=== PATIENT | female | born 1935 | race Caucasian/White ===

== ENCOUNTER 2021-10-26 17:10 | Inpatient (IN) ==
[2021-10-26] MEDS ORDERED: DILTIAZEM 50 MG/10 ML VIAL IV STA (17:44)
[2021-10-26 18:15] LABS: Basophils % 0.8 % (0.0-0.8); Eosinophils # 0.1 10*3/uL (0.0-0.87); Hematocrit 41.2 VOL% (35.7-47.0); Hemoglobin 13.5 GM/DL (12.0-16.0); Immature Granulocytes % 0.2 %; Immature Granulocytes Absolute 0.01 #; Lymphocytes # 1.3 10*3/uL (1.4-4.0); Lymphocytes % 24.8 % (21.3-54.2); Mean Corpuscular HGB Conc 32.8 GM/DL (32-36); Mean Corpuscular Volume 93.2 FL (87-102); Mean Platelet Volume 11.6 FL (9.6-12.0); Monocytes # 0.7 10*3/uL (0.11-0.8); Monocytes % 13.9 % (1.7-12.7); Neutrophils % 58.3 % (38.7-73.9); Platelet Count 103 T/CUMM (130-400); Red Blood Count 4.42 MC/CUMM (3.8-5.5); Red Cell Distribution Width 14.1 % (9.3-17.3); White Blood Count 5.1 T/CUMM (4-12)
[2021-10-26 19:13] LABS: Albumin 3.3 G/DL (3.4-5.0); Bilirubin,Total 1.2 MG/DL (0.20-1.00); Calcium 8.6 MG/DL (8.5-10.1); Potassium 3.2 MMOL/L (3.5-5.1); Total Protein 6.2 G/DL (6.4-8.2)
[2021-10-26] MEDS ORDERED: ENOXAPARIN 60 MG/0.6 ML SYRINGE SUBCUT STA (19:40)
[2021-10-26] MEDS ORDERED: DILTIAZEM INJ 100 MG in SODIUM CHLORIDE 0.9% 100 ML IV SCH (20:00)
[2021-10-26] MEDS ORDERED: GLUCAGON 1 MG VIAL IM PRN (20:46)
[2021-10-26] MEDS ORDERED: ONDANSETRON 4 MG/2 ML VIAL IV PRN (20:46)
[2021-10-26] MEDS ORDERED: ACETAMINOPHEN 325 MG TABLET PO PRN (20:46)
[2021-10-26] MEDS ORDERED: DEXTROSE 10% 250 ML BAG IV PRN (20:46)
[2021-10-26] MEDS ORDERED: POTASSIUM CHLORIDE 20 MEQ TABLET PO PRN (20:50)
[2021-10-26] MEDS ORDERED: METOPROLOL TARTRATE 25 MG TABLET PO SCH (21:00)
[2021-10-27 00:53] LABS: Basophils % 0.8 % (0.0-0.8); Eosinophils # 0.1 10*3/uL (0.0-0.87); Eosinophils % 2.3 % (0.00-10.9); Hematocrit 39.5 VOL% (35.7-47.0); Hemoglobin 12.7 GM/DL (12.0-16.0); Immature Granulocytes % 0.4 %; Immature Granulocytes Absolute 0.02 #; Lymphocytes # 1.4 10*3/uL (1.4-4.0); Mean Corpuscular HGB Conc 32.2 GM/DL (32-36); Mean Corpuscular Volume 94.5 FL (87-102); Mean Platelet Volume 11.2 FL (9.6-12.0); Monocytes # 0.6 10*3/uL (0.11-0.8); Monocytes % 12.5 % (1.7-12.7); Platelet Count 104 T/CUMM (130-400); Red Blood Count 4.18 MC/CUMM (3.8-5.5); Red Cell Distribution Width 14.1 % (9.3-17.3); White Blood Count 5.1 T/CUMM (4-12)
[2021-10-27 00:58] LABS: Calcium 8.5 MG/DL (8.5-10.1); Osmolality,Calculated 286.8 MOS/KG (273-304); Risk Ratio 3.21; VLDL Cholesterol 11.4 MG/DL
[2021-10-27] MEDS: ALBUTEROL/IPRATROPIUM 3 ML NEB RESP TX SCH ×4 (02:06→18:55)
[2021-10-27] MEDS ORDERED: POTASSIUM CHLORIDE 20 MEQ TABLET PO ONE (08:26)
[2021-10-27] MEDS ORDERED: APIXABAN 5 MG TABLET PO SCH (09:00)
[2021-10-27] MEDS: FUROSEMIDE 40 MG/4 ML VIAL IV SCH ×2 (10:13→16:29)
[2021-10-27] MEDS: PANTOPRAZOLE 40 MG TABLET PO SCH (10:14)
[2021-10-27] MEDS: METOPROLOL TARTRATE 25 MG TABLET PO SCH ×2 (10:14→21:55)
[2021-10-27] MEDS: APIXABAN 2.5 MG TABLET PO SCH (21:55)
[2021-10-28 05:21] LABS: Albumin 3.3 G/DL (3.4-5.0); Bilirubin,Total 1.1 MG/DL (0.20-1.00); Calcium 8.8 MG/DL (8.5-10.1); Osmolality,Calculated 285.8 MOS/KG (273-304); Potassium 2.7 MMOL/L (3.5-5.1); Total Protein 6.4 G/DL (6.4-8.2)
[2021-10-28] MEDS: ALBUTEROL/IPRATROPIUM 3 ML NEB RESP TX SCH ×3 (07:28→19:30)
[2021-10-28] MEDS ORDERED: POTASSIUM CHLORIDE 20 MEQ TABLET PO ONE (07:59)
[2021-10-28] MEDS: diphenhydrAMINE 25 MG/10 ML UDCUP PO SCH ×2 (08:38→21:40)
[2021-10-28] MEDS: FUROSEMIDE 40 MG/4 ML VIAL IV SCH (09:18)
[2021-10-28] MEDS: APIXABAN 2.5 MG TABLET PO SCH (09:20)
[2021-10-28] MEDS: PANTOPRAZOLE 40 MG TABLET PO SCH (09:20)
[2021-10-28] MEDS: METOPROLOL TARTRATE 25 MG TABLET PO SCH (09:20)
[2021-10-28] MEDS ORDERED: METOPROLOL TARTRATE 25 MG TABLET PO ONE (10:44)
[2021-10-28] MEDS: RIVAROXABAN 15 MG TABLET PO SCH (21:25)
[2021-10-28] MEDS: METOPROLOL TARTRATE 50 MG TABLET PO SCH (21:25)
[2021-10-29] MEDS: ALBUTEROL/IPRATROPIUM 3 ML NEB RESP TX SCH ×5 (00:30→18:58)
[2021-10-29] MEDS ORDERED: POTASSIUM CHLORIDE 20 MEQ TABLET PO PRN (08:23)
[2021-10-29 08:50] LABS: Albumin 3.2 G/DL (3.4-5.0); Bilirubin,Total 1.2 MG/DL (0.20-1.00); Calcium 9.2 MG/DL (8.5-10.1); Potassium 3.7 MMOL/L (3.5-5.1); Total Protein 6.7 G/DL (6.4-8.2)
[2021-10-29] MEDS ORDERED: MAGNESIUM SULF RIDER 2 GM/50 ML PREMIX IV ONE (09:55)
[2021-10-29] MEDS ORDERED: DILTIAZEM CD 120 MG CAPSULE PO SCH (10:00)
[2021-10-29] MEDS: POTASSIUM BICARB EFFERVESCENT 20 MEQ TAB.EFF PO PRN ×4 (10:40→17:02)
[2021-10-29] MEDS: PANTOPRAZOLE 40 MG TABLET PO SCH (10:40)
[2021-10-29] MEDS: METOPROLOL TARTRATE 50 MG TABLET PO SCH (10:41)
[2021-10-29] MEDS ORDERED: MAGNESIUM OXIDE 400 MG TABLET PO ONE (11:18)
[2021-10-29] MEDS ORDERED: DILTIAZEM CD 120 MG CAPSULE PO ONE (15:38)
[2021-10-29] MEDS: RIVAROXABAN 15 MG TABLET PO SCH (17:02)
[2021-10-29] MEDS: diphenhydrAMINE 25 MG/10 ML UDCUP PO SCH (21:10)
[2021-10-29] MEDS: METOPROLOL TARTRATE 25 MG TABLET PO SCH (21:10)
[2021-10-30] MEDS: ALBUTEROL/IPRATROPIUM 3 ML NEB RESP TX SCH ×2 (00:02→07:10)
[2021-10-30 05:24] LABS: Basophils # 0.1 10*3/uL (0.0-0.2); Basophils % 0.8 % (0.0-0.8); Eosinophils # 0.2 10*3/uL (0.0-0.87); Eosinophils % 3.5 % (0.00-10.9); Hematocrit 43.5 VOL% (35.7-47.0); Hemoglobin 13.8 GM/DL (12.0-16.0); Immature Granulocytes % 0.2 %; Immature Granulocytes Absolute 0.01 #; Lymphocytes # 1.7 10*3/uL (1.4-4.0); Lymphocytes % 27.5 % (21.3-54.2); Mean Corpuscular HGB Conc 31.7 GM/DL (32-36); Mean Corpuscular Volume 95.4 FL (87-102); Monocytes # 0.7 10*3/uL (0.11-0.8); Monocytes % 10.8 % (1.7-12.7); Neutrophils % 57.2 % (38.7-73.9); Platelet Count 103 T/CUMM (130-400); Red Blood Count 4.56 MC/CUMM (3.8-5.5); Red Cell Distribution Width 13.9 % (9.3-17.3); White Blood Count 6.3 T/CUMM (4-12)
[2021-10-30 05:41] LABS: Calcium 8.9 MG/DL (8.5-10.1); Osmolality,Calculated 281.4 MOS/KG (273-304); Potassium 4.3 MMOL/L (3.5-5.1)
[2021-10-30] MEDS: METOPROLOL TARTRATE 25 MG TABLET PO SCH (08:55)
[2021-10-30] MEDS: PANTOPRAZOLE 40 MG TABLET PO SCH (08:55)
[2021-10-30] MEDS ORDERED: DILTIAZEM CD 240 MG CAPSULE PO SCH (09:00)
[2021-10-30 10:04] VITALS: BP 141/113
== END 2021-10-30 11:38 | disposition home health service (06) | DRG 291 ==
LOC: N.ED 17:10 → SUATTDRO 20:46 → N.EDINP 20:46 → N.TELEN 21:44
PROVIDERS: ADMIT Emergency Medicine; ATTEND Internal Medicine

== ENCOUNTER 2022-01-22 17:34 | Observation (INO) ==
[2022-01-22] MEDS ORDERED: DILTIAZEM 25 MG/5 ML VIAL IV STA (20:47)
[2022-01-22] MEDS ORDERED: FUROSEMIDE 40 MG/4 ML VIAL IV STA (20:47)
[2022-01-22] MEDS: DILTIAZEM INJ 100 MG in SODIUM CHLORIDE 0.9% 100 ML IV SCH (21:23)
[2022-01-22 21:32] LABS: Basophils % 0.3 % (0.0-0.8); Eosinophils % 0.2 % (0.00-10.9); Hematocrit 46.1 VOL% (35.7-47.0); Hemoglobin 15.1 GM/DL (12.0-16.0); Immature Granulocytes % 0.3 %; Immature Granulocytes Absolute 0.02 #; Lymphocytes # 1.1 10*3/uL (1.4-4.0); Lymphocytes % 18.9 % (21.3-54.2); Mean Corpuscular HGB Conc 32.8 GM/DL (32-36); Mean Corpuscular Volume 92.8 FL (87-102); Mean Platelet Volume 12.6 FL (9.6-12.0); Monocytes # 0.3 10*3/uL (0.11-0.8); Monocytes % 4.4 % (1.7-12.7); Neutrophils % 75.9 % (38.7-73.9); Platelet Count 104 T/CUMM (130-400); Red Blood Count 4.97 MC/CUMM (3.8-5.5); Red Cell Distribution Width 15.2 % (9.3-17.3); White Blood Count 5.9 T/CUMM (4-12)
[2022-01-22 21:45] LABS: INR 1.1; PT Patient Result 11.9 SECS (10.5-12.0)
[2022-01-22 21:53] LABS: Albumin 3.7 G/DL (3.4-5.0); Calcium 9.2 MG/DL (8.5-10.1); Osmolality,Calculated 283.4 MOS/KG (273-304); Potassium 4.2 MMOL/L (3.5-5.1); Thyroid Stimulating Hormone 2.48 uIU/ml (0.358-3.74); Total Protein 7.5 G/DL (6.4-8.2)
[2022-01-22 22:10] LABS: Bacteria,Urine Occasional /HPF (Few); Mucus,Urine Occasional /LPF (Occasional); RBC,Urine 4 /HPF (0-4); Squamous Epithelial Cell,Urine Occasional /HPF (0-10)
[2022-01-22 22:17] LABS: Bilirubin,Urine Negative (Negative); Glucose,Urine (UA) Negative (Negative); Ketones,Urine Trace mg/dL (Negative); Nitrite,Urine Negative (Negative); Protein,Urine 100 mg/dL (Negative); Urine Appearance Clear (Clear); Urine Color Yellow (Yellow); Urine Specific Gravity >= 1.030 (1.001-1.035)
[2022-01-22 22:18] LABS: Blood, Urine Trace mg/dL (Negative); Urine Urobilinogen 0.2 eU/dL (<2.0)
[2022-01-22] MEDS ORDERED: ONDANSETRON 4 MG/2 ML VIAL IV PRN (22:53)
[2022-01-22] MEDS ORDERED: ACETAMINOPHEN 325 MG TABLET PO PRN (22:53)
[2022-01-22] MEDS ORDERED: GLUCAGON 1 MG VIAL IM PRN (22:53)
[2022-01-22] MEDS ORDERED: DEXTROSE 10% 250 ML BAG IV PRN (23:57)
[2022-01-23] MEDS: DILTIAZEM INJ 100 MG in SODIUM CHLORIDE 0.9% 100 ML IV SCH (05:50)
[2022-01-23 07:41] LABS: Basophils % 0.5 % (0.0-0.8); Eosinophils % 0.5 % (0.00-10.9); Hematocrit 40.9 VOL% (35.7-47.0); Hemoglobin 13.3 GM/DL (12.0-16.0); Immature Granulocytes % 0.2 %; Immature Granulocytes Absolute 0.01 #; Lymphocytes # 1.8 10*3/uL (1.4-4.0); Lymphocytes % 30.5 % (21.3-54.2); Mean Corpuscular HGB Conc 32.5 GM/DL (32-36); Mean Corpuscular Volume 92.3 FL (87-102); Mean Platelet Volume 11.1 FL (9.6-12.0); Monocytes # 0.7 10*3/uL (0.11-0.8); Neutrophils % 57.3 % (38.7-73.9); Red Blood Count 4.43 MC/CUMM (3.8-5.5); Red Cell Distribution Width 15.1 % (9.3-17.3); White Blood Count 5.9 T/CUMM (4-12)
[2022-01-23 07:44] LABS: Platelet Count 97 T/CUMM (130-400)
[2022-01-23 07:57] LABS: Platelet Estimate Decreased
[2022-01-23 08:06] LABS: Albumin 3.3 G/DL (3.4-5.0); Calcium 9.6 MG/DL (8.5-10.1); Osmolality,Calculated 280.4 MOS/KG (273-304); Potassium 3.6 MMOL/L (3.5-5.1); Total Protein 6.5 G/DL (6.4-8.2)
[2022-01-23] MEDS: INSULIN REGULAR 100 UNIT/ML SUBCUT SCH ×2 (08:07→12:12)
[2022-01-23] MEDS ORDERED: POTASSIUM CHLORIDE 20 MEQ TABLET PO ONE (08:29)
[2022-01-23] MEDS ORDERED: DILTIAZEM CD 120 MG CAPSULE PO SCH (09:00)
[2022-01-23] MEDS ORDERED: PANTOPRAZOLE 40 MG TABLET PO SCH (09:00)
[2022-01-23] MEDS ORDERED: METOPROLOL SUCCINATE XL 100 MG TABLET PO SCH (09:00)
[2022-01-23] MEDS ORDERED: ASPIRIN 325 MG TABLET PO SCH (09:00)
[2022-01-23] MEDS ORDERED: ASCORBIC ACID 500 MG TABLET PO SCH (09:00)
[2022-01-23] MEDS ORDERED: FUROSEMIDE 40 MG/4 ML VIAL IV ONE (09:31)
[2022-01-23 12:12] VITALS: BP 149/76
[2022-01-24] MEDS ORDERED: METOPROLOL SUCCINATE XL 25 MG TABLET PO SCH (09:00)
== END 2022-01-23 15:39 | disposition home or self-care (01) ==
LOC: N.TELES 17:34 → N.SDSINP 17:34 → N.ED 17:34 → N.TELENOUT 22:53 → N.SDSINP 22:53 → N.EDINP 22:53 → N.TELES 23:55 → N.SDSINP 01-23 15:29 → UNDODEPREF 01-30 13:43
PROVIDERS: ADMIT Internal Medicine; ATTEND Internal Medicine